=== PATIENT | male | born 1995 | race Caucasian/White ===

== ENCOUNTER 2019-05-26 21:02 | Emergency (ER) | payer SELFPAY ==
[~2019-05-26] VITALS: Ht 177.8 cm; Wt 97.5 kg
[2019-05-26 21:05] VITALS: BP 154/75
[2019-05-26] MEDS ORDERED: DIPHTH,PERTUSS(ACELL),TET TOX 0.5 ML DISP.SYRIN. VAX IM ONE (22:00)
[2019-05-26] MEDS ORDERED: NEOMY/BACITR/POLYMYXIN OINT PACKET. TP ONE (22:00)
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
== END 2019-05-26 22:50 | disposition home or self-care (01) ==
LOC: ER 21:02
DX: S80.01XA Contusion of right knee, initial encounter (principal); S80.02XA Contusion of left knee, initial encounter; S00.11XA Contusion of right eyelid and periocular area, initial encounter; S90.32XA Contusion of left foot, initial encounter; S60.511A Abrasion of right hand, initial encounter; S40.811A Abrasion of right upper arm, initial encounter; S50.811A Abrasion of right forearm, initial encounter; Z90.89 Acquired absence of other organs; V29.49XA Motorcycle driver injured in collision with other motor vehicles in traffic accident, initial encounter; Y93.89 Activity, other specified; Y92.410 Unspecified street and highway as the place of occurrence of the external cause; Y99.8 Other external cause status
CPT/HCPCS: 70450; 72125; 73521; 73562; 73630; 90471; 90715; 99284